=== PATIENT | female | born 1945 | race Asian ===

== ENCOUNTER 2020-01-13 13:54 | Outpatient (CLI) | payer OTHER | END 2020-01-13 19:05 | disposition home or self-care (01) | LOC: RESP 13:54 | DX: I25.10 Atherosclerotic heart disease of native coronary artery without angina pectoris (principal); E11.9 Type 2 diabetes mellitus without complications ==

== ENCOUNTER 2020-01-17 08:12 | Outpatient (CLI) | payer OTHER ==
[~2020-01-17] VITALS: Ht 165.1 cm; Wt 105.7 kg
== END 2020-01-17 19:07 | disposition home or self-care (01) ==
LOC: NM 08:12
DX: I25.10 Atherosclerotic heart disease of native coronary artery without angina pectoris (principal); E11.9 Type 2 diabetes mellitus without complications
CPT/HCPCS: A9500; J2785